=== PATIENT | male | born 1945 | race Two or more races ===

== ENCOUNTER 2024-08-08 07:45 | Inpatient (IN) | payer OTHER ==
[~2024-08-08] VITALS: Ht 172.7 cm; Wt 77.1 kg
[2024-08-08 09:21] LABS: BASO % 0.2 % (0.1-1.2); EOS # 0.02 (0.04-0.54); EOS % 0.4 % (0.7-7.0); LYMPH # 1.60 (1.18-3.74); LYMPH % 29.0 % (19.3-53.1); MEAN PLATELET VOLUME 11.30 fl (9.4-12.4); MONO # 0.85 (0.24-0.82); NEUT # 3.01 (1.56-6.13); NEUT % 54.6 % (34.0-71.1); RED CELL DISTRIBUTION WIDTH 12.9 % (11.6-14.4)
[2024-08-08] MEDS ORDERED: SYNTHROID150 MCG PO (09:21)
[2024-08-08] MEDS ORDERED: TAMS0.4C PO (09:22)
[2024-08-08] MEDS ORDERED: ATACAND16 MG PO (09:22)
[2024-08-08] MEDS ORDERED: PROSCAR5 MG PO (09:22)
[2024-08-08 09:23] VITALS: BP 160/94
[2024-08-08 09:23] LABS: MONO % 15.4 % (4.7-12.5)
[2024-08-08 09:25] LABS: URINE APPEARANCE Clear; URINE BILIRRUBIN Negative (NEGATIVE); URINE BLOOD Small; URINE COLOR Yellow; URINE GLUCOSE Negative (NEGATIVE); URINE KETONE Negative (NEGATIVE); URINE LEUKOCYTE Negative; URINE NITRATE Negative; URINE PROTEIN Negative (NEGATIVE); URINE RBC 18.3 uL (0.0-20.8); URINE UROBILINOGEN 0.2 E.U./dl
[2024-08-08 09:36] LABS: COVID-19 AG NEGATIVE (NEGATIVE)
[2024-08-08 09:44] LABS: INR 1.08
[2024-08-08 09:51] LABS: ALT/SGPT 29.0 U/L (12-78); AST/SGOT 18.0 U/L (15-37); BILIRUBIN TOTAL 1.32 mg/dL (0.3-1.2); BUN CREA RATIO 15.0 (7.0-25.0); CHOL HDL RATIO 4.2 (0-5.0); CREATININE SERUM 1.11 mg/dL (0.70-1.30); GFR 64.23; GLOBULINA 3.2 G/DL (2.4-3.5); GLUCOSE FASTING 102.0 mg/dL (65-100); HDL 41.0 mg/dl (40-60); LDL 117.0 mg/dl (0-130); OSMOLALITY SERUM 289.0 MOSM/KG (275-295); VLDL 12.0 (0-39)
[2024-08-08 10:06] LABS: URINE BACTERIA 2.3 uL (0.0-1933); URINE CAST 0.00 uL (0.0-1.40); URINE EPITHELIAL CELLS 0.9 uL (0.0-38.8); URINE WBC 0.6 uL (0.0-23.2)
[2024-08-13] MEDS ORDERED: CEFAZOLIN SODIUM 1,000 MG VIAL IV ONE (10:00)
[2024-08-13] MEDS ORDERED: TRANEXAMIC ACID 100MG/1ML (1000MG) AMPUL IV ONE ×2 (10:00)
[2024-08-13] MEDS ORDERED: VANCOMYCIN HCL 1,000 MG VIAL IR ONE (10:00)
[2024-08-13] MEDS ORDERED: MORPHINE SULFATE 4 MG/ML CARTRIDGE IV PRN (12:15)
[2024-08-13] MEDS ORDERED: ONDANSETRON HCL 2 MG/ML VIAL IV PRN (12:15)
[2024-08-13] MEDS ORDERED: SODIUM CHLORIDE 0.45 % 1,000 ML IV SCH (12:15)
[2024-08-13] MEDS ORDERED: OxyCODONE HCL 5 MG TABLET (ROXICODONE) PO PRN (12:15)
[2024-08-13] MEDS ORDERED: ENALAPRILAT DIHYDRATE 1.25 MG/ML VIAL IV PRN (13:15)
[2024-08-13] MEDS ORDERED: MORPHINE SULFATE 4 MG/ML VIAL IV ONE (15:00)
[2024-08-13 16:00] VITALS: BP 162/90; O2SAT 95
[2024-08-13] MEDS ORDERED: APIXABAN 2.5 MG TABLET PO SCH (17:00)
[2024-08-13] MEDS ORDERED: GABAPENTIN 300 MG CAPSULE PO SCH (17:00)
[2024-08-13] MEDS ORDERED: CEFAZOLIN SODIUM 1,000 MG VIAL IV SCH (17:00)
[2024-08-13] MEDS ORDERED: ACETAMINOPHEN 500 MG GEL..CAP PO SCH (18:00)
[2024-08-13] MEDS ORDERED: TAMSULOSIN HCL 0.4 MG CAP PO SCH (21:00)
[2024-08-14 00:42] VITALS: BP 179/78; O2SAT 97
[2024-08-14] MEDS ORDERED: LEVOTHYROXINE SODIUM 150 MCG TABLET PO SCH (06:00)
[2024-08-14 06:58] LABS: BASO % 0.1 % (0.1-1.2); EOS # 0.00 (0.04-0.54); EOS % 0.0 % (0.7-7.0); LYMPH # 1.19 (1.18-3.74); LYMPH % 9.3 % (19.3-53.1); MEAN PLATELET VOLUME 11.90 fl (9.4-12.4); MONO # 2.76 (0.24-0.82); NEUT # 8.74 (1.56-6.13); NEUT % 68.2 % (34.0-71.1); RED CELL DISTRIBUTION WIDTH 12.9 % (11.6-14.4)
[2024-08-14 07:03] LABS: MONO % 21.5 % (4.7-12.5)
[2024-08-14 08:00] VITALS: BP 143/73; O2SAT 96
[2024-08-14] MEDS ORDERED: PERCOCET 5-3251 EACH PO (08:50)
[2024-08-14] MEDS ORDERED: DUI500 PO (08:50)
[2024-08-14] MEDS ORDERED: ELIQUIS2.5 MG PO (08:50)
[2024-08-14] MEDS ORDERED: SENNOSIDES 1 TAB TABLET PO SCH (09:00)
[2024-08-14] MEDS ORDERED: CANDESARTAN CILEXETIL 16 MG TABLET PO SCH (09:00)
[2024-08-14] MEDS ORDERED: FINASTERIDE 5 MG TABLET PO SCH (09:00)
[2024-08-14 16:56] VITALS: BP 159/69; O2SAT 95
[2024-08-14] MEDS ORDERED: SOD FERRIC GLUC COMPLX/SUCROSE 62.5 MG/5 ML AMPUL IV SCH (17:00)
[2024-08-14] MEDS ORDERED: Cyanocobalamin/Mecobalamin 1 TAB.SL SL SCH (17:00)
[2024-08-15 02:24] VITALS: BP 125/75; O2SAT 96
[2024-08-15 07:29] LABS: BASO % 0.1 % (0.1-1.2); EOS # 0.00 (0.04-0.54); EOS % 0.0 % (0.7-7.0); LYMPH # 1.73 (1.18-3.74); LYMPH % 12.0 % (19.3-53.1); MEAN PLATELET VOLUME 11.90 fl (9.4-12.4); MONO # 3.79 (0.24-0.82); NEUT # 8.75 (1.56-6.13); NEUT % 60.4 % (34.0-71.1); RED CELL DISTRIBUTION WIDTH 12.9 % (11.6-14.4)
[2024-08-15 08:13] LABS: EOSINOPHIL MAN 1.0 %; LYMPHOCYTE MAN 16.0 %; MONO % 26.2 % (4.7-12.5); MONOCYTE MAN 15.0 %; NEUTROPHILS MAN 68.0 %
[2024-08-15 09:00] VITALS: BP 135/85; O2SAT 97
[2024-08-15] MEDS ORDERED: IRON FUM,PS/FOLIC ACID/VITC/B3 1 CAP CAPSULE PO SCH (09:00)
[2024-08-15 16:21] VITALS: BP 158/81; O2SAT 99
[2024-08-16 00:30] VITALS: BP 146/74; O2SAT 98
== END 2024-08-16 11:57 | DRG 470 ==
LOC: SURH 08-13 07:45 → O/R 08-13 07:52 → SURG 08-13 07:52 → SURH 08-13 10:00 → SURG 08-13 11:23
PROVIDERS: ADMIT Orthopaedic Surgery; ATTEND Orthopaedic Surgery
PROC: 0MBL0ZZ Excision of Right Hip Bursa and Ligament, Open Approach (ICD-10-PCS; 2024-08-13)
PROC: 0SR90JA Replacement of Right Hip Joint with Synthetic Substitute, Uncemented, Open Approach (ICD-10-PCS; principal; 2024-08-13 10:00)
DX: M16.11 Unilateral primary osteoarthritis, right hip (principal); D62 Acute posthemorrhagic anemia; M89.751 Major osseous defect, right pelvic region and thigh; M70.61 Trochanteric bursitis, right hip; I10 Essential (primary) hypertension